=== PATIENT | male | born 1970 | race African-American/Black ===

== ENCOUNTER 2024-07-04 02:39 | Emergency (ER) | payer OTHER ==
[~2024-07-04 02:39] MED LIST: CEFAZOLIN SODIUM 2 GM/VIAL ONE; LIDOCAINE 2% W/EPI 1:200,000 MPF 20 ML VIAL IM ONE; NA CHLORIDE 0.9% 1,000 ML ONE; NA CHLORIDE 0.9% 100 ML ONE; ONDANSETRON 4 MG/2 ML VIAL ONE; TDAP (DIPHTH,PERTUSS(ACELL),TET VAC) 0.5 ML VIAL IMVAC ONE; THIAMINE 200 MG/2 ML INJ ONE
[2024-07-04] MEDS ORDERED: AMOX/K CLAV 875 MG TAB ONE (03:24)
[2024-07-04] MEDS ORDERED: LIDOCAINE 2% W/EPI 1:200,000 MPF 20 ML VIAL IM ONE (03:41)
[2024-07-04 03:46] LABS: Absolute Eosinophils 0.2 K/uL (0-0.5); Absolute Monocytes 0.4 K/uL (0.1-1.3); Absolute Neutrophil 3.1 K/uL (1.8-8.0); Basophils % 0.6 % (0-1.3); Eosinophils % 3.7 % (0-4.4); Hematocrit 47.7 % (39.6-49.0); Hemoglobin 15.5 g/dL (13.6-17.9); Lymphocytes % 34.6 % (15.3-44.8); MCH 29.1 pg (27.0-35.0); MCHC 32.5 g/dL (32.0-36.0); MCV 89.4 fL (80-100); MPV 7.8 fL (7.6-11.3); Monocytes % 6.6 % (3.3-12.3); Neutrophils % 54.5 % (41.7-73.7); Platelets 259 thou/uL (152-406); RBC Red Blood Cell Count 5.34 M/uL (4.33-5.43); Red Cell Distribution Width 15.9 % (12.1-15.2)
[2024-07-04 03:47] LABS: Potassium 3.6 mEq/L (3.5-5.1)
[2024-07-04 03:49] LABS: Anion Gap 3.7 mEq/L (5.0-15.0)
[2024-07-04 03:50] LABS: Albumin 3.7 g/dL (3.4-5.0); Albumin/Globulin Ratio 0.9 (1.1-1.8); Bilirubin Total 0.4 mg/dL (0.2-1.0); Globulin 4.3 g/dL (2.3-3.5)
--- NOTE | 2024-07-04 03:52 | RAD REPORT ---
EXAM: XR Chest, 1 View CLINICAL HISTORY: COUGH TECHNIQUE: Frontal view of the chest. COMPARISON: No relevant prior studies available. FINDINGS: Lungs: Unremarkable. No consolidation. Pleural space: Unremarkable. No pneumothorax. Heart: Unremarkable. No cardiomegaly. Mediastinum: Unremarkable. Normal mediastinal contour. Bones/joints: Right humeral head suture anchor. No acute fracture. IMPRESSION: No acute disease. Electronically signed by: Estelle Hendrix MD 07/04/2024 03:46 AM [facility] Due to temporary technical issues with the PACS/RadLog[employer] reporting system, reports are being brian d by the in-house radiologist without review as a courtesy to ensure prompt reporting the interpreting radiologist is fully responsible for the content of the report. Transcribed Date/Time: 07/04/2024 3:52 AM
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
--- NOTE | 2024-07-04 06:00 | RAD REPORT ---
EXAM: CT Head and Cervical Spine Without Intravenous Contrast CLINICAL HISTORY: The patient is 53 years old and is Male; PAIN TECHNIQUE: Axial computed tomography images of the head/brain and cervical spine without intravenou s contrast. Sagittal and coronal reformatted images were created and reviewed. This CT exam was performed using one or more of the following dose reduction techniques: automated exposure control, adjustment of the mA and/or kV according to patient size, and/or use of iterative reconstruction technique. COMPARISON: No relevant prior studies available. FINDINGS: Brain: Unremarkable. No hemorrhage. No significant white matter disease. No edema. Ventricles: Unremarkable. No ventriculomegaly. Skull: See corresponding CT maxillofacial. Sinuses: Unremarkable as visualized. No acute sinusitis. Mastoid air cells: Unremarkable as visualized. No mastoid effusion. Vertebrae: Unremarkable. No acute fracture. Normal alignment. Discs/spinal canal/neural foramina: No acute findings. No spinal canal stenosis. Soft tissues: Right frontal scalp swelling. * A single impression for all exams can be found at the end of this report EXAM: CT Maxillofacial Without Intravenous Contrast CLINICAL HISTORY: The patient is 53 years old and is Male; PAIN TECHNIQUE: Axial computed tomography images of the face without intravenous contrast. Sagittal an d coronal reformatted images were created and reviewed. This CT exam was performed using one or more of the following dose reduction techniques: automated exposure control, adjustment of the mA a nd/or kV according to patient size, and/or use of iterative reconstruction technique. COMPARISON: No relevant prior studies available. FINDINGS: Bones/joints: Comminuted fracture of the superior right orbital wall extending into the right fro ntal sinus. Fracture of the inferior right orbital wall. No muscular entrapment. Soft tissues: Right frontal scalp swelling. Orbits: Unremarkable. Sinuses: Frontal sinus mucosal thickening. Ethmoid sinus mucosal thickening. No air-fluid levels. * A single impression for all exams can be found at the end of this report IMPRESSION: CT Head and Cervical Spine Without Intravenous Contrast: No acute intracranial abnormality. No acute findings in the cervical spine. CT Maxillofacial Without Intravenous Contrast: 1. Comminuted fracture of the superior right orbital wall extending into the right frontal sinus. 2. Fracture of the inferior right orbital wall. No muscular entrapment. Electronically signed by: Jayson Steele MD 07/04/2024 05:24 AM [facility] 8 Due to temporary technical issues with the PACS/[employer] reporting system, reports are being brian d by the in-house radiologist without review as a courtesy to ensure prompt reporting the interpreting radiologist is fully responsible for the content of the report. Transcribed Date/Time: 07/04/2024 6:00 AM
--- NOTE | 2024-07-04 06:01 | RAD REPORT ---
EXAM: CT Head and Cervical Spine Without Intravenous Contrast CLINICAL HISTORY: The patient is 53 years old and is Male; PAIN TECHNIQUE: Axial computed tomography images of the head/brain and cervical spine without intravenou s contrast. Sagittal and coronal reformatted images were created and reviewed. This CT exam was performed using one or more of the following dose reduction techniques: automated exposure control, adjustment of the mA and/or kV according to patient size, and/or use of iterative reconstruction technique. COMPARISON: No relevant prior studies available. FINDINGS: Brain: Unremarkable. No hemorrhage. No significant white matter disease. No edema. Ventricles: Unremarkable. No ventriculomegaly. Skull: See corresponding CT maxillofacial. Sinuses: Unremarkable as visualized. No acute sinusitis. Mastoid air cells: Unremarkable as visualized. No mastoid effusion. Vertebrae: Unremarkable. No acute fracture. Normal alignment. Discs/spinal canal/neural foramina: No acute findings. No spinal canal stenosis. Soft tissues: Right frontal scalp swelling. * A single impression for all exams can be found at the end of this report EXAM: CT Maxillofacial Without Intravenous Contrast CLINICAL HISTORY: The patient is 53 years old and is Male; PAIN TECHNIQUE: Axial computed tomography images of the face without intravenous contrast. Sagittal an d coronal reformatted images were created and reviewed. This CT exam was performed using one or more of the following dose reduction techniques: automated exposure control, adjustment of the mA a nd/or kV according to patient size, and/or use of iterative reconstruction technique. COMPARISON: No relevant prior studies available. FINDINGS: Bones/joints: Comminuted fracture of the superior right orbital wall extending into the right fro ntal sinus. Fracture of the inferior right orbital wall. No muscular entrapment. Soft tissues: Right frontal scalp swelling. Orbits: Unremarkable. Sinuses: Frontal sinus mucosal thickening. Ethmoid sinus mucosal thickening. No air-fluid levels. * A single impression for all exams can be found at the end of this report IMPRESSION: CT Head and Cervical Spine Without Intravenous Contrast: No acute intracranial abnormality. No acute findings in the cervical spine. CT Maxillofacial Without Intravenous Contrast: 1. Comminuted fracture of the superior right orbital wall extending into the right frontal sinus. 2. Fracture of the inferior right orbital wall. No muscular entrapment. Electronically signed by: Jayson Steele MD 07/04/2024 05:24 AM [facility] 8 Due to temporary technical issues with the PACS/[employer] reporting system, reports are being brian d by the in-house radiologist without review as a courtesy to ensure prompt reporting the interpreting radiologist is fully responsible for the content of the report. Transcribed Date/Time: 07/04/2024 6:01 AM
[2024-07-04] MEDS ORDERED: HYDROMORPHONE HCL 1 MG/ML INJ ONE (06:30)
--- NOTE | 2024-07-04 06:54 | RAD REPORT ---
EXAM DESCRIPTION: Facial Bones <3 Views CLINICAL HISTORY: FORIEGN BODY COMPARISON: 07/04/2024 FINDINGS: 3 views of the frontal bone. No radiopaque foreign body. Nondisplaced right orbital r ridge fracture. Normal osseous mineralization. Soft tissue edema. IMPRESSION: 1. Nondisplaced right orbital roof fracture. 2. No radiopaque foreign body identified. Electronically signed by: Power Paredes DO 07/04/2024 05:33 AM [facility] 4ZDM Due to temporary technical issues with the PACS/[employer] reporting system, reports are being brian d by the in-house radiologist without review as a courtesy to ensure prompt reporting the interpreting radiologist is fully responsible for the content of the report. Transcribed Date/Time: 07/04/2024 6:54 AM
[2024-07-04 07:33] VITALS: BP 154/95; O2SAT 100
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
--- NOTE | 2024-07-05 15:24 | RAD REPORT ---
EXAM:XR Facial Bones <3 Views HISTORY: [facility] MAIN FORIEGN BODY Bed Name: 17 COMPARISON: None TECHNIQUE: 3 views of the facial bones. Exam was not initially reported by the overnight radiology se rvice due to technical difficulties. I was made aware of the need for a report today. FINDINGS: Nondisplaced right orbital roof fracture. Incongruity of the right orbital floor as well, m ay suggest a fracture. Punctate radiodense focus with adjacent gas within an area of soft tissue swelling along the forehead on lateral view. Partial opacification of the right maxillary sinus and m astoid air cells. IMPRESSION: Right orbital roof and floor fractures. Punctate focus of radiodensity with adjacent gas along the forehead on lateral view, may represent de bris/foreign body.
== END 2024-07-04 07:23 | disposition short-term general hospital (02) ==
LOC: ER 02:39
DX: S01.81XA Laceration without foreign body of other part of head, initial encounter (principal); S02.31XA Fracture of orbital floor, right side, initial encounter for closed fracture; Y04.8XXA Assault by other bodily force, initial encounter; I10 Essential (primary) hypertension; F17.210 Nicotine dependence, cigarettes, uncomplicated
CPT/HCPCS: 85025; 36415; 80053; 70450; 72125; 70486; 76377; 71045; 70140 ×2; 73562; 96372; 99285; 12032; J1171; J2405; J3411; J7030